=== PATIENT | female | born 1950 | race American Indian/Alaskan Native ===

== ENCOUNTER 2017-08-11 10:26 | Outpatient (CLI) | payer MEDICARE ==
--- NOTE | 2017-08-11 15:20 | Mammography Report ---
BILATERAL MAMMOGRAM with CAD: HISTORY:Cancer screening. Comparison study is dated April 23, 2016. FINDINGS: The breasts are almost entirely fat (<25% glandular). No mass, distortion, suspicious calcification, or skin change is seen. IMPRESSION: Negative mammogram. There is no mammographic evidence of malignancy. RECOMMENDATION: Follow-up per ACS guidelines. BI-RADS CATEGORY: 1 = Negative ACR BI-RADS MAMMOGRAPHIC CODES: 0 = Needs additional imaging evaluation; 1 = Negative; 2 = Benign; 3 = Probably benign; 4 = Suspicious; 5 = Malignant; 6 = Known biopsy-proven malignancy COMMENT: 1. Dense breast tissue, i.e., adenosis, fibrocystic changes, etc., may obscure an underlying neoplasm. 2. Approximately 10% of cancers are not detected with mammography. 3. A negative mammography report should not delay biopsy if a clinically suspicious mass is present. COMMENT: Patient follow-up letters are generated in [employer].
== END 2017-08-11 10:27 | disposition home or self-care (01) ==
LOC: MAMMO 10:26
PROVIDERS: ATTEND Internal Medicine
DX: Z12.31 Encounter for screening mammogram for malignant neoplasm of breast (principal)
CPT/HCPCS: 77067; G0202

== ENCOUNTER 2018-10-11 07:37 | Outpatient (CLI) | payer MEDICARE ==
--- NOTE | 2018-10-11 09:14 | XRay Report ---
RIGHT SHOULDER, 3 VIEWS: HISTORY: right shoulder pain. Borderline bone mineralization. Mild osteoarthritic changes are identified at the a.c. joint and glenohumeral joint. No evidence for fracture, dislocation, or ligamentous injury or bone lesion. The soft tissues are unremarkable. IMPRESSION: Osteoarthritis.
--- NOTE | 2018-10-11 09:22 | XRay Report ---
LUMBOSACRAL SPINE, FIVE VIEWS: HISTORY: Low back pain. Borderline bone mineralization. There is 5 mm anterolisthesis of L4 with respect L5. This appears to be secondary to degenerative facet arthropathy. The remaining lumbar vertebra are normal in alignment. Mild degenerative disc disease is identified at all levels. Moderate facet arthropathy is identified at all levels with moderate hypertrophic changes at the lowest 3 levels. No evidence for compression deformity or bone lesion. The oblique images demonstrate adequate patency of the neural foramen bilaterally. No pars defect is identified. There are mild symmetric osteoarthritic changes at the SI joints. IMPRESSION: Lumbar spondylosis as described. Grade 1 anterolisthesis of L4 with respect L5. No acute process is detected.
--- NOTE | 2018-10-11 09:29 | Vascular Lab Report ---
FINAL REPORT EXAM: VL CAROTID DUPLEX BILAT HISTORY: CAROTID BRUIT TECHNIQUE: Carotid Doppler ultrasound performed. Grayscale, color flow and spectral waveform imaging . PRIORS: None. FINDINGS: There is mild atherosclerotic plaque. There is no abnormal elevation in flow velocity to indicate car otid artery hemodynamically significant stenosis (less than 50 percent). ICA/CCA velocity ratios are normal, 0.74 on the right and 0.6 to on the left.. Vertebral artery flow is antegrade bilaterally. IMPRESSION: Mild plaque. No evidence of a hemodynamically significant stenosis
--- NOTE | 2018-10-12 13:53 | Mammography Report ---
BILATERAL DIGITAL SCREENING MAMMOGRAM with CAD: 10/11/18 07:37:00 CLINICAL: Routine screening. COMPARISON: 08/11/17 FINDINGS: There are bilateral scattered areas of fibroglandular density.No mass, architectural distortion or suspicious calcifications. IMPRESSION: No mammographic evidence of malignancy. BI-RADS CATEGORY: 1 -- Negative RECOMMENDATION: Routine mammographic screening in one year. COMMENT: Patient follow-up letters are generated by our [employer] application.
== END 2018-10-11 07:38 | disposition home or self-care (01) ==
LOC: MAMMO 07:37
PROVIDERS: ATTEND Internal Medicine
DX: Z12.31 Encounter for screening mammogram for malignant neoplasm of breast (principal); M47.816 Spondylosis without myelopathy or radiculopathy, lumbar region; M19.011 Primary osteoarthritis, right shoulder; R09.89 Other specified symptoms and signs involving the circulatory and respiratory systems
CPT/HCPCS: 72110; 77067; 93880

== ENCOUNTER 2020-05-01 14:14 | Outpatient (CLI) | payer MEDICARE ==
--- NOTE | 2020-05-01 15:54 | Mammography Report ---
DIGITAL SCREENING MAMMOGRAM WITH CAD, 05/01/2020 INDICATION: Routine screening mammography. TECHNIQUE: Digital bilateral 2D mammography was obtained in the craniocaudal and mediolateral obliq ue projections. This examination was interpreted with the benefit of Computer-Aided Detection analysi s. COMPARISON: 10/11/2018. FINDINGS: Breast Density: There are scattered areas of fibroglandular density. There is no evidence of dominant mass, suspicious calcifications or architectural distortion in eithe r breast. IMPRESSION: Follow up recommendation: Routine yearly BI-RADS Category 1: Negative. A "normal" or negative report should not discourage follow up or biopsy of a clinically significant f inding. A written summary of these findings will be mailed to the patient. The patient will be entered into a mammography reporting system which will generate a reminder letter for the patient's next appointmen t at the appropriate interval. The [employer] recommends yearly mammograms starting at age 40 and continuing as l dianne as a woman is in good health. Breast MRI is recommended for women with an approximate 20-25% or greater lifetime risk of breast cancer, including women with a strong family history of breast or ova brady cancer or who have been treated for Hodgkin's disease. Signer Name: Patricio Carver MD Signed: 05/01/2020 3:50 PM Workstation Name: [facility]
== END 2020-05-01 14:15 | disposition home or self-care (01) ==
LOC: MAMMO 14:14
PROVIDERS: ATTEND Internal Medicine
DX: Z12.31 Encounter for screening mammogram for malignant neoplasm of breast (principal); N64.89 Other specified disorders of breast
CPT/HCPCS: 77067

== ENCOUNTER 2022-04-13 12:41 | Outpatient (CLI) | payer MEDICARE ==
--- NOTE | 2022-04-15 11:07 | Mammography Report ---
DIGITAL SCREENING MAMMOGRAM WITH CAD, 04/13/2022 CLINICAL INFORMATION / INDICATION: Routine screening mammography. Z12.31 TECHNIQUE: Digital bilateral 2D mammography was obtained in the craniocaudal and mediolateral obliqu e projections. This examination was interpreted with the benefit of Computer-Aided Detection analysis . COMPARISON: 05/01/2020. FINDINGS: Breast Density: There are scattered areas of fibroglandular density. No dominant mass, suspicious calcifications, or architectural distortion in either breast. IMPRESSION: No mammographic evidence of malignancy. Follow up recommendation: Routine yearly screening mammogram. BI-RADS Category 1: NEGATIVE A "normal" or negative report should not discourage follow up or biopsy of a clinically significant f inding. A written summary of these findings will be mailed to the patient. The patient will be entered into a mammography reporting system which will generate a reminder letter for the patient's next appointmen t at the appropriate interval. The [employer] recommends yearly mammograms starting at age 40 and continuing as l dianne as a woman is in good health. Breast MRI is recommended for women with an approximate 20-25% or greater lifetime risk of breast cancer, including women with a strong family history of breast or ova brady cancer or who have been treated for Hodgkin's disease. Signer Name: Patricio Carver MD Signed: 04/15/2022 11:03 AM Workstation Name: [employer]
== END 2022-04-13 12:42 | disposition home or self-care (01) ==
LOC: MAMMO 12:41
PROVIDERS: ATTEND Internal Medicine
DX: Z12.31 Encounter for screening mammogram for malignant neoplasm of breast (principal)
CPT/HCPCS: 77067